=== PATIENT | male | born 1980 | race Caucasian/White ===

== ENCOUNTER 2016-11-01 20:24 | Inpatient (IN) | payer BC ==
[~2016-11-01] VITALS: Ht 167.6 cm; Wt 72.2 kg
--- NOTE | ~2016-11-01 | DS ---
Discharge Summary [facility] [address] [place]. [address] NAME: RAOUL MARTIN : [birth year] STATUS : ADM IN [facility]#: [id number] AGE: 36 ADM/REG DATE : 11/01/16 MR#: [id number] REPORT SERV DATE: 11/04/16 DICTATED BY: TOM MAHONEY DATE: 11/04/16 REPORT STATUS : Draft TRANSCRIBED BY: MODL DATE: 11/04/16 ADMISSION DATE: 11/01/2016 DISCHARGE DATE: HISTORY OF PRESENT ILLNESS: Mr. 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 However, the patient has subsequently developed upper GI bleed and was transferred to [facility] for further management. For further details, please refer to H and P dictated by Dr. Dwyer on 11/01/2016. The patient was transferred to [facility] on 11/02/2016. Given his development of GI bleed, GI was subsequently consulted. For further details, please refer to consultation note dictated by Dr. Cuellar on 11/02/2016. At the time of my evaluation, the patient was hemodynamically stable, was taken to the endoscopy suite by GI for an EGD. The patient is status post EGD, which he tolerated well. EGD did note a gastric ulcer measuring about 2 cm. However, the ulcer was clean based. Biopsy was obtained, however, no active bleeding was noted. The patient was returned to the hospital room with recommendations from GI to be placed on PPI twice a day for a period of two weeks and then subsequently repeat EGD at that time. The patient has remained hemodynamically stable. He has been started on diet which he has tolerated. Given the patient's completion of workup and given his hemodynamic stability and resolution of his presenting complaint, the patient will be discharged today. For his pulmonary embolism, given as a contraindication of GI bleed, the patient has an IVC filter in place at this point with plans for IVC filter removal in three months. Plan has been discussed with the patient who voices understanding and is agreeable with this plan. DISCHARGE DIAGNOSES: 1. Upper gastrointestinal bleed. 2. Acute blood loss anemia. 3. History of transposition of great vessels. 4. Psoriatic arthritis. 5. Hypokalemia. 6. Pulmonary embolism. DISCHARGE MEDICATIONS: The patient's home medications were continued including Cymbalta 60 mg p.o. daily, enalapril 20 mg p.o. twice a day, Claritin 10 mg p.o. daily, pantoprazole 40 mg p.o. twice a day, hydrochlorothiazide 25 mg p.o. daily, prednisone 10 mg p.o. daily. PROCEDURES: The patient had an upper endoscopy, impression: Gastric ulcer with clean base measuring about 20 mm, otherwise normal examination with no active bleeding. DISCHARGE PHYSICAL EXAMINATION: VITAL SIGNS: Blood pressure 146/95 with a pulse of 79, respiration 18, O2 saturation 95% on room air. GENERAL: Patient lying in bed, in no acute distress, appears stated age. HEENT: Normocephalic and atraumatic. Extraocular motors intact. Pupils round and reactive to light and accommodation. Anicteric sclerae. Oral mucosa is moist. Discharge Summary [address] [address] NAME: RAOUL MARTIN : [birth year] STATUS : ADM IN [facility]#: [id number] AGE: 36 ADM/REG DATE : 11/01/16 MR#: [id number] REPORT SERV DATE: 11/04/16 DICTATED BY: TOM MAHONEY DATE: 11/04/16 REPORT STATUS : Draft TRANSCRIBED BY: MODL DATE: 11/04/16 NECK: Trachea midline and symmetric. No JVD. No thyromegaly present. CHEST: Midline incisional scar noted, well healed. Chest nontender to palpation. CARDIOVASCULAR: Regular rate and rhythm. S1, S2. No murmurs, rubs, or gallops. LUNGS: Clear to auscultation bilaterally. ABDOMEN: Positive bowel sounds. Nontender. Nondistended. EXTREMITIES: No cyanosis, no clubbing, no edema. NEURO: Alert and oriented x3. No focal deficits appreciated. CONSULTANTS: Dr. Rosado of GI. DISPOSITION: The patient will be discharged to home. ACTIVITY: As tolerated. DIET: As tolerated. Greater than 30 minutes was spent discharging the patient, providing counseling, dictation of note, medication reconciliation. PAU/LULU Tom Mahoney MD / [id number] CC: MD Ling Alarcon M.D.
--- NOTE | ~2016-11-01 | CN ---
Consultation Report [facility] [address] [place]. [address] NAME: RAOUL MARTIN : [birth year] STATUS : ADM IN PAT#: [id number] AGE: 36 ADM/REG DATE : 11/01/16 MR#: [id number] REPORT SERV DATE: 11/02/16 DICTATED BY: KADEEM JOYNER DATE: 11/02/16 REPORT STATUS : Draft TRANSCRIBED BY: MODL DATE: 11/02/16 GI CONSULTATION DATE OF CONSULTATION: 11/02/2016 Raoul Martin is a 36-year-old male patient admitted on 11/01/2016. REASON FOR CONSULTATION: Evaluation and management of GI bleed/melena. HISTORY OF PRESENT ILLNESS: Mr. Martin is a pleasant 36-year-old male patient, who was seen initially at [facility] for a chief complaint of generalized pain. He has a history of psoriatic arthritis, stating that he was up until the last week on a regimen of chronic prednisone. He states he also saw Pain Management and was started on Duexis which is an NSAID medication. His symptoms worsened. He also had been complaining of abdominal pain and discomfort for [id number] weeks. He states he has had anorexia for the last altti-fp-ceav weeks, also secondary to any oral intake, increasing the pain that he is having in his belly. He denies any nausea or vomiting, any reflux, or indigestion. He states that he has had noticed dark stools for the last one to two weeks. He was in the emergency room. He states that he ambulated to the restroom to give them a urine sample but was extremely short of breath and dyspneic on return. CT angiogram was obtained secondary to the degree of shortness of breath. Findings on that exam showed acute pulmonary embolus, segmental size pulmonary artery right lower lobe. He was placed in the emergency room bed again. He was started on a heparin drip. He states shortly thereafter, he had a bowel movement that he could not control which is not typical for him and he states that it was nothing but black tarry stools. Hemoccult was positive. He was thus sent to [facility] for IVC filter placement via interventional radiology which he has had done. I have seen the patient this morning. His hemoglobin currently is 8.1. It should be noted that last year, in 2016, his hemoglobin was normal at 12.6. He is currently on 2 L of oxygen. No respiratory distress is noted and he is saturating around 98%. I have discussed with the patient. We will maintain him on his Protonix drip today, n.p.o. after midnight, clear liquid diet today, and an upper endoscopy with Dr. Rosado on 11/02/2016. Risks, benefits, alternatives, and complications were detailed for him to include, but not limited to the risk of bleeding, perforation, infection, reaction to medications, as well as cardiac and pulmonary side effects. He is agreeable to proceed. 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 Lorenzo at [place]; asthma which is controlled; psoriatic arthritis followed by Dr. Farris, was recently on chronic steroid therapy as well as Remicade, but taken off his steroids; disc compression; chronic pain; seasonal allergies; anxiety; depression; and panic disorder. SURGERIES: Corrective surgery for his transposition of the great vessels at [age] months of age, pacemaker placement, pacemaker removal and replacement, hemorrhoid surgery, and cardiac stents. Consultation Report [address] [place]. [address] NAME: RAOUL MARTIN : 84 STATUS : ADM IN [facility]#: [id number] AGE: 36 ADM/REG DATE : 11/01/16 MR#: [id number] REPORT SERV DATE: 11/02/16 DICTATED BY: KADEEM JOYNER DATE: 11/02/16 REPORT STATUS : Draft TRANSCRIBED BY: LULU DATE: 11/02/16 SOCIAL HISTORY: He is . He is employed at [employer]. He has three children. Denies any alcohol, tobacco, or illicit drugs. FAMILY HISTORY: Positive for lupus in his mother. ALLERGIES: HE HAS NO KNOWN ALLERGIES LISTED. HOME MEDICATIONS: Proventil HFA; Voltaren Gel; Cymbalta; Vasotec; hydrochlorothiazide; [facility]; Duexis which he has not been taking in the last three days; Combivent; Claritin; Prilosec; and Aspercreme with Lidocaine gel. REVIEW OF SYSTEMS: A 10-point review of systems has been obtained with pertinent positives being addressed in the history of present illness. PHYSICAL EXAMINATION: VITAL SIGNS: Temperature is 98.4, pulse 97, respirations of 20, and blood pressure is 167/98. NEUROLOGIC: Physical exam reveals an alert, male, resting in bed. No obvious focal deficits. GENERAL: Cooperative, in no apparent distress. He is awake, alert, and oriented x3 and pleasant. HEAD, EARS, EYES, NOSE, AND THROAT: Anicteric. Pupils are equal, round, and reactive to light and accommodation. Normocephalic and atraumatic. NECK: Supple with no JVD or palpable nodes. LUNGS: Decreased throughout with no wheezes, rhonchi, or rales auscultated. He is on O2 by nasal cannula at 2 liters. CARDIOVASCULAR SYSTEM: Regular rate and rhythm. Right upper chest wall incision secondary to new pacemaker being placed. GI: Abdomen is soft and round. He has very mild minimal tenderness to palpation but no rebound or guarding. He has active bowel sounds in all four quadrants. There was no organomegaly on exam. EXTREMITIES: No edema. Normal distal pulses. SKIN: Warm, dry, and intact. PERTINENT LABORATORY DATA: Sodium is 136, potassium is 3.6, BUN is 31, and creatinine 0.93. White count 14.6, hemoglobin 8.1, and hematocrit 25. ASSESSMENT AND PLAN: 1. Upper GI bleed with melena. Differential diagnosis includes peptic ulcer disease, gastritis, duodenitis, and esophagitis. 2. Acute blood loss anemia stable at present at 8.1. No transfusion yet. 3. Acute pulmonary embolus, status post IVC filter, no anticoagulants secondary to GI bleeding. Consultation Report [address] [place]. [address] NAME: RAOUL MARTIN : [birth year] STATUS : ADM IN [facility]#: [id number] AGE: 36 ADM/REG DATE : 11/01/16 MR#: [id number] REPORT SERV DATE: 11/02/16 DICTATED BY: KADEEM JOYNER DATE: 11/02/16 REPORT STATUS : Draft TRANSCRIBED BY: MODDamaris DATE: 11/02/16 4. History of transposition of the great vessels, status post surgical intervention at 3 months of age. 5. Permanent pacemaker placement. 6. Psoriatic arthritis with a history of Remicade, chronic steroid and Duexis; off steroids and ibuprofen at this point in time. PLAN: 1. Clear liquid diet today; n.p.o. after midnight. 2. PPI drip. 3. Monitor H and H. 4. He will undergo EGD in the morning with Dr. Rosado. Risks, benefits, alternatives, and complications were detailed for him. 5. Morning labs. 6. Trend his H and H and transfuse if needed. We will follow other recommendations after endoscopy. WILMER/MODDamaris [place] CATHY Moon / [id number] CC: Francisco Javier Dwyer MD
--- NOTE | ~2016-11-01 | EGD ---
EGD REPORT [facility] [address] [address] NAME: RAOUL MARTIN : 84 STATUS : ADM IN PAT#: [id number] AGE: 36 ADM/REG DATE : 11/01/16 MR#: [id number] REPORT SERV DATE: 11/03/16 DICTATED BY: LIAM MONTAGUE DATE: 11/03/16 REPORT STATUS : Draft TRANSCRIBED BY: [facility] DATE: 11/03/16 Endoscopy Center Patient Name: Raoul Martin Date of : 1980 Attending MD: LIAM MONTAGUE MD Procedure Date No Time: 11/03/2016 Procedure: Upper GI endoscopy Indications: Melena Referring MD: LAZARO JOHNSON Medicines: Monitored Anesthesia Care Complications: No immediate complications. Estimated blood loss: Minimal. Procedure: Pre-Anesthesia Assessment: - ASA Grade Assessment: IV - A patient with severe systemic disease that is a constant threat to life. After obtaining informed consent, the endoscope was passed under direct vision. Throughout the procedure, the patient's blood pressure, pulse, and oxygen saturations were monitored continuously. The GIF [id number] was introduced through the mouth, and advanced to the second part of duodenum. The upper GI endoscopy was accomplished without difficulty. The patient tolerated the procedure well. Findings: The examined esophagus was normal. One non-bleeding cratered gastric ulcer with no stigmata of bleeding was found at the pylorus. The lesion was 20 mm in largest dimension. Biopsies were taken with a cold forceps for histology. Estimated blood loss was minimal. The examined duodenum was normal. The cardia and gastric fundus were normal on retroflexion. Impression: - Gastric ulcer with clean base. Biopsied. - Otherwise normal examination with no active bleeding. Recommendation: - Return patient to [facility] for ongoing care. - Clear liquid diet and then advance diet as tolerated by symptoms. - Use Protonix (pantoprazole) 40 mg PO BID for 12 weeks. - Await pathology results. - Repeat the upper endoscopy in 3 months to check healing. Procedure Code(s): --- Professional --- EGD REPORT [facility] [address] [place], [place] [address]. [address] NAME: RAOUL MARTIN : [birth year] STATUS : [facility]M IN [facility]#: [id number] AGE: 36 ADM/REG DATE : 11/01/16 MR#: [id number] REPORT SERV DATE: 11/03/16 DICTATED BY: LIAM MONTAGUE DATE: 11/03/16 REPORT STATUS : Draft TRANSCRIBED BY: [employer] DATE: 11/03/16 [id number], Esophagogastroduodenoscopy, flexible, transoral; with biopsy, single or multiple Diagnosis Code(s): --- Professional --- K25.9, Gastric ulcer, unspecified as acute or chronic, without hemorrhage or perforation K92.1, Melena CPT copyright 2013 [employer]. All rights reserved. The codes documented in this report are preliminary and upon electrical inspector review may be revised to meet current compliance requirements. Liam Montague MD LIAM MONTAGUE MD 11/03/2016 8:12 AM This report has been signed electronically. Number of Addenda: 0 Note Initiated On: 11/03/2016 7:46 AM Scope Withdrawal Time 0 hours 0 minutes 0 seconds [address] [facility] [place] [address]
[~2016-11-01 20:24] MED LIST: ABILIFY5 PO; ADVIL PO; ASAB PO; ASPERCREME/LIDOCAINE TOP; CENTRUM PO; CLARIT10 PO; COMBIVENT RESPIM4 GM INH; COREG12 PO; CYMBALTA60 PO; DUEXIS 800-26.1 EACH PO; FLECTOR1.3 % TOP; HCTZ25B PO; HYDROCHLOROT25 MG PO; KLONO5 PO; LORTAB 5 PO; MOBIC15 MG PO; NEUR300 PO; NORCO1 TAB PO; P10 PO; P5 PO; PRILO PO; PRISTIQ100 MG PO; PROAIR HFA INH; PROBIOTIC PO; PROVHFA INH; REMICADE IV; TRAZ100 PO; TRAZ50 PO; VASOTEC20 MG PO; VOLTAREN1 % TOP
[2016-11-01] MEDS ORDERED: P10 PO (23:29)
[2016-11-02 05:13] LABS: CALCIUM, SERUM 8.2 MG/DL (8.5-10.4); CHLORIDE, SERUM 107 MMOL/L (96-112); CO2 (CARBON DIOXIDE) 20 MMOL/L (24-34); CREATININE 0.93 MG/DL (0.70-1.30); GFR AFRICAN AMERICAN 124 ML/MIN (>=60); GFR NON AFRICAN AMERICAN 107 ML/MIN (>=60); GLUCOSE, SERUM 135 MG/DL (60-99); POTASSIUM, SERUM 3.6 MMOL/L (3.5-5.3); SODIUM, SERUM 136 MMOL/L (135-148)
[2016-11-02 05:17] LABS: BUN (BLOOD UREA NITROGEN) 31 MG/DL (6-23)
[2016-11-02 05:18] LABS: HEMOGLOBIN 8.1 g/dL (13.6-17.8); MEAN CORPUS HGB CONC 32.4 g/dL (32.0-36.0); MEAN CORPUSCULAR HEMOGLOB 30.9 pg (26.0-34.0); MEAN CORPUSCULAR VOLUME 95.4 fL (80-100); MEAN PLATELET VOLUME 9.7 fL (9.2-13.0); NUCLEATED RED BLOOD CELLS 0.9 /100WBC (0-0); PLATELET COUNT 420 10/3/uL (150-400); RBC DISTRIBUTION WIDTH 14.9 % (12.0-16.0); RED CELL COUNT 2.62 10/6/uL (4.7-6.1); WHITE BLOOD CELLS 14.6 10/3/uL (4.5-10.5)
[2016-11-02 05:21] LABS: MANUAL DIFF YES %
[2016-11-02 05:45] LABS: BAND NEUTROPHILS 6 %; LYMPHOCYTES 21 %; LYMPHOCYTES ABSOLUTE (CALC) 3.07 10/3/uL (0.67-4.30); MONOCYTES 10 %; MONOCYTES ABSOLUTE (CALC) 1.46 10/3/uL (0.21-1.20); NEUTROPHILS ABSOLUTE (CALC) 10.07 10/3/uL (2.02-8.40); PLATELET ESTIMATE SLT INC (ADEQUATE); RBC MORPHOLOGY NORM (NORMAL); SEGMENTED NEUTROPHIL (0) 63 %; TOTAL NUCLEATED CELLS 100
[2016-11-02 10:48] LABS: HEMATOCRIT 23.5 % (40.0-51.0); HEMOGLOBIN 7.5 g/dL (13.6-17.8)
[2016-11-02 20:46] LABS: HEMATOCRIT 27.7 % (40.0-51.0)
[2016-11-02 22:54] LABS: HEMATOCRIT 28.1 % (40.0-51.0); HEMOGLOBIN 9.1 g/dL (13.6-17.8)
[2016-11-03 06:03] LABS: INTERNATIONAL NORMAL RATI 1.1 UNITS (-); PROTIME (NOT ORD) 14.1 SEC (12.0-14.5)
[2016-11-03 06:11] LABS: CALCIUM, SERUM 7.3 MG/DL (8.5-10.4); CHLORIDE, SERUM 112 MMOL/L (96-112); CO2 (CARBON DIOXIDE) 17 MMOL/L (24-34); CREATININE 0.71 MG/DL (0.70-1.30); GFR AFRICAN AMERICAN 142 ML/MIN (>=60); GFR NON AFRICAN AMERICAN 122 ML/MIN (>=60); POTASSIUM, SERUM 3.5 MMOL/L (3.5-5.3); SODIUM, SERUM 140 MMOL/L (135-148)
[2016-11-03 06:12] LABS: BUN (BLOOD UREA NITROGEN) 14 MG/DL (6-23); GLUCOSE, SERUM 80 MG/DL (60-99)
[2016-11-03 06:25] LABS: HEMOGLOBIN 8.2 g/dL (13.6-17.8); MEAN CORPUS HGB CONC 32.8 g/dL (32.0-36.0); MEAN CORPUSCULAR HEMOGLOB 30.9 pg (26.0-34.0); MEAN CORPUSCULAR VOLUME 94.3 fL (80-100); MEAN PLATELET VOLUME 9.8 fL (9.2-13.0); NUCLEATED RED BLOOD CELLS 1.6 /100WBC (0-0); PLATELET COUNT 329 10/3/uL (150-400); RBC DISTRIBUTION WIDTH 15.4 % (12.0-16.0); RED CELL COUNT 2.65 10/6/uL (4.7-6.1); WHITE BLOOD CELLS 11.7 10/3/uL (4.5-10.5)
[2016-11-03 06:32] LABS: MANUAL DIFF YES %
[2016-11-03 06:52] LABS: BAND NEUTROPHILS 1 %; EOSINOPHILS 2 %; EOSINOPHILS ABSOLUTE (CALC) 0.23 10/3/uL (0.0-0.53); IMMATURE GRANS ABSOLUTE (CALC) 0.47 10/3/uL (0.0-0.11); LYMPHOCYTES 24 %; LYMPHOCYTES ABSOLUTE (CALC) 2.81 10/3/uL (0.67-4.30); METAMYELOCYTES 3 %; MONOCYTES 5 %; MONOCYTES ABSOLUTE (CALC) 0.59 10/3/uL (0.21-1.20); MYELOCYTES 1 %; NEUTROPHILS ABSOLUTE (CALC) 7.61 10/3/uL (2.02-8.40); PLATELET ESTIMATE ADQ (ADEQUATE); SEGMENTED NEUTROPHIL (0) 64 %; TOTAL NUCLEATED CELLS 100
[2016-11-03 06:53] LABS: POLYCHROMASIA 1+ (2-5/OIF) (0-1/OIF)
[2016-11-03 10:40] LABS: HEMATOCRIT 25.6 % (40.0-51.0); HEMOGLOBIN 8.4 g/dL (13.6-17.8)
[2016-11-04 04:56] LABS: BASOPHILS 0.2 %; BASOPHILS ABSOLUTE 0.02 10/3/uL (0.0-0.16); EOSINOPHILS 1.3 %; EOSINOPHILS ABSOLUTE 0.13 10/3/uL (0.0-0.53); HEMATOCRIT 25.7 % (40.0-51.0); HEMOGLOBIN 8.3 g/dL (13.6-17.8); IMMATURE GRANULOCYTES 3.6 %; IMMATURE GRANULOCYTES ABSOLUTE 0.35 10/3/uL (0.0-0.11); LYMPHOCYTES 26.5 %; LYMPHOCYTES ABSOLUTE 2.59 10/3/uL (0.67-4.30); MEAN CORPUS HGB CONC 32.3 g/dL (32.0-36.0); MEAN CORPUSCULAR HEMOGLOB 30.7 pg (26.0-34.0); MEAN CORPUSCULAR VOLUME 95.2 fL (80-100); MEAN PLATELET VOLUME 9.3 fL (9.2-13.0); MONOCYTES 8.4 %; MONOCYTES ABSOLUTE 0.82 10/3/uL (0.21-1.20); NEUTROPHILS ABSOLUTE 5.88 10/3/uL (2.02-8.40); PLATELET COUNT 383 10/3/uL (150-400); RBC DISTRIBUTION WIDTH 15.6 % (12.0-16.0); WHITE BLOOD CELLS 9.8 10/3/uL (4.5-10.5)
[2016-11-04 04:58] LABS: MANUAL DIFF NO %
[2016-11-04 05:13] LABS: CALCIUM, SERUM 7.8 MG/DL (8.5-10.4); CHLORIDE, SERUM 109 MMOL/L (96-112); CREATININE 0.92 MG/DL (0.70-1.30); GFR AFRICAN AMERICAN 125 ML/MIN (>=60); GFR NON AFRICAN AMERICAN 108 ML/MIN (>=60); POTASSIUM, SERUM 3.3 MMOL/L (3.5-5.3); SGOT(AST) 21 U/L (5-40); SGPT(ALT) 42 U/L (5-65); SODIUM, SERUM 142 MMOL/L (135-148)
[2016-11-04 05:14] LABS: ALKALINE PHOSPHATASE 47 U/L (45-117); BUN (BLOOD UREA NITROGEN) 9 MG/DL (6-23); CO2 (CARBON DIOXIDE) 26 MMOL/L (24-34); GLOBULIN 2.9 G/DL (2.5-4.1); GLUCOSE, SERUM 100 MG/DL (60-99); TOTAL BILIRUBIN 1.3 MG/DL (0-1.2); TOTAL PROTEIN 5.9 G/DL (6.0-8.5)
[2016-11-04] MEDS ORDERED: PROTONIX PO (10:24)
== END 2016-11-04 15:00 | disposition home or self-care (01) | DRG 356 ==
LOC: ENRESERVTM → ENRESERVDT → ENRESERV → 7NO 21:11 → IMCU 21:11 → 7NO 11-03 13:13
PROVIDERS: Hospitalist; Internal Medicine; Internal Medicine Gastroenterology; Nurse Practitioner Family
PROC: 06H03DZ Insertion of Intraluminal Device into Inferior Vena Cava, Percutaneous Approach (ICD-10-PCS; 2016-11-01)
PROC: 30233N1 Transfusion of Nonautologous Red Blood Cells into Peripheral Vein, Percutaneous Approach (ICD-10-PCS; 2016-11-02)
PROC: 0DB68ZX Excision of Stomach, Via Natural or Artificial Opening Endoscopic, Diagnostic (ICD-10-PCS; principal; 2016-11-03 07:30)
DX: K25.4 Chronic or unspecified gastric ulcer with hemorrhage (principal); I26.99 Other pulmonary embolism without acute cor pulmonale; Q20.5 Discordant atrioventricular connection; D62 Acute posthemorrhagic anemia; L40.50 Arthropathic psoriasis, unspecified; E87.6 Hypokalemia; R63.0 Anorexia; G89.29 Other chronic pain; F41.9 Anxiety disorder, unspecified; F32.9 Major depressive disorder, single episode, unspecified; I25.10 Atherosclerotic heart disease of native coronary artery without angina pectoris; Z95.5 Presence of coronary angioplasty implant and graft; Z95.0 Presence of cardiac pacemaker
CPT/HCPCS: 36415; 37191; 80048; 80053; 83735; 85014; 85018; 85025; 85610; 86850; 86900; 86901; 86920; 87641; 88305; 99152; 99153; A9270-GY; C1769; C9113; J0360; J1170; J2250; J3010; P9016; Q9967